=== PATIENT | female | born 1985 | race Caucasian/White ===

== ENCOUNTER 2022-09-24 12:35 | Emergency (ER) | payer OTHER ==
[~2022-09-24] VITALS: Ht 152.4 cm; Wt 49.0 kg
== END 2022-09-24 16:05 | disposition home or self-care (01) ==
LOC: ER 12:35
DX: J06.9 Acute upper respiratory infection, unspecified (principal); Z20.822 Contact with and (suspected) exposure to COVID-19

== ENCOUNTER 2024-10-22 21:00 | Emergency (ER) | payer OTHER ==
[~2024-10-22] VITALS: Ht 152.4 cm; Wt 49.9 kg
[2024-10-22] MEDS ORDERED: CARAFATE1 GM (21:52)
[2024-10-22] MEDS ORDERED: PANTOPRAZO40 MG/50 M (21:52)
[2024-10-22] MEDS ORDERED: ACID REDUCER20 M1 (21:52)
[2024-10-22] MEDS ORDERED: PEPCID AC20 MG (21:52)
[2024-10-22 21:55] VITALS: BP 104/74; O2SAT 100
[2024-10-22] MEDS ORDERED: FAMOTIDINE/PF 20 MG in 0.9 % SODIUM CHLORIDE 8 ML IV PUSH STA (22:13)
[2024-10-22] MEDS ORDERED: 0.9 % SODIUM CHLORIDE 1,000 ML IV SCH (22:15)
[2024-10-22] MEDS ORDERED: ONDANSETRON HCL 2 MG/ML VIAL IV ONE (22:15)
[2024-10-22] MEDS ORDERED: DIPHENOXYLATE HCL/ATROPINE 1 UDTAB TABLET PO ONE (22:15)
[2024-10-22] MEDS ORDERED: FAMOTIDINE/PF 20 MG/2 ML VIAL ONE (22:17)
[2024-10-22] MEDS ORDERED: ONDANSETRON HCL 2 MG/ML VIAL ONE (22:17)
[2024-10-22 22:48] LABS: BASO % 0.3 % (0.1-1.2); EOS # 0.01 (0.04-0.54); EOS % 0.1 % (0.7-7.0); LYMPH # 1.10 (1.18-3.74); LYMPH % 11.5 % (19.3-53.1); MEAN PLATELET VOLUME 11.20 fl (9.4-12.4); MONO # 0.67 (0.24-0.82); MONO % 7.0 % (4.7-12.5); NEUT # 7.75 (1.56-6.13); NEUT % 80.8 % (34.0-71.1); RED CELL DISTRIBUTION WIDTH 12.8 % (11.6-14.4)
[2024-10-22 23:08] LABS: ALT/SGPT 25.0 U/L (12-78); AST/SGOT 14.0 U/L (15-37); BILIRUBIN TOTAL 0.25 mg/dL (0.3-1.2); BUN CREA RATIO 8.0 (7.0-25.0); CREATININE SERUM 0.72 mg/dL (0.55-1.02); GFR 90.18; GLOBULINA 4.1 G/DL (2.4-3.5); GLUCOSE FASTING 107.0 mg/dL (65-100); OSMOLALITY SERUM 270.0 MOSM/KG (275-295)
[2024-10-22] MEDS ORDERED: PROTONIX40 MG PO (23:44)
[2024-10-22] MEDS ORDERED: LEVSIN/SL0.125 MG SL (23:44)
[2024-10-22] MEDS ORDERED: INTESTINEX680 M1 PO (23:44)
[2024-10-22] MEDS ORDERED: ONDANSETRON ODT8 MG PO (23:44)
[2024-10-23] MEDS ORDERED: OMEPRAZOLE20 MG PO (12:44)
[2024-10-24] MEDS ORDERED: CIPROFLOXACIN500 MG PO (02:20)
[2024-10-24] MEDS ORDERED: METRONIDAZOLE500 MG PO (02:20)
[2024-10-24] MEDS ORDERED: HYOSCYAMINE0.125 MG PO (02:20)
== END 2024-10-23 00:03 | disposition home or self-care (01) ==
LOC: ER 21:00
PROVIDERS: General Practice
DX: K52.9 Noninfective gastroenteritis and colitis, unspecified (principal); Z91.018 Allergy to other foods

== ENCOUNTER 2024-10-23 10:15 | Emergency (ER) | payer OTHER ==
[~2024-10-23] VITALS: Ht 152.4 cm; Wt 49.9 kg
[~2024-10-23 10:15] MED LIST: ACID REDUCER20 M1; CARAFATE1 GM; INTESTINEX680 M1 PO; LEVSIN/SL0.125 MG SL; ONDANSETRON ODT8 MG PO; PANTOPRAZO40 MG/50 M; PEPCID AC20 MG; PROTONIX40 MG PO
[2024-10-23] MEDS ORDERED: OMEPRAZOLE20 MG PO (12:44)
[2024-10-23] MEDS ORDERED: METRONIDAZOLE/SODIUM CHLORIDE 500 MG/100 ML PIGGYBACK IV ONE ×2 (13:27→13:30)
[2024-10-23] MEDS ORDERED: FAMOTIDINE/PF 20 MG/2 ML VIAL ONE (13:27)
[2024-10-23] MEDS ORDERED: HYOSCYAMINE SULFATE 0.125 MG TAB.SUBL ONE (13:27)
[2024-10-23] MEDS ORDERED: HYOSCYAMINE SULFATE 0.125 MG TAB.SUBL SL ONE (13:30)
[2024-10-23] MEDS ORDERED: FAMOTIDINE/PF 20 MG/2 ML VIAL IV PUSH ONE (13:30)
[2024-10-23] MEDS ORDERED: 0.9 % SODIUM CHLORIDE 1,000 ML IV SCH (13:30)
[2024-10-23 14:15] LABS: BASO % 0.3 % (0.1-1.2); EOS # 0.01 (0.04-0.54); EOS % 0.1 % (0.7-7.0); LYMPH # 0.96 (1.18-3.74); LYMPH % 12.3 % (19.3-53.1); MEAN PLATELET VOLUME 11.10 fl (9.4-12.4); MONO # 0.57 (0.24-0.82); MONO % 7.3 % (4.7-12.5); NEUT # 6.20 (1.56-6.13); NEUT % 79.7 % (34.0-71.1); RED CELL DISTRIBUTION WIDTH 12.8 % (11.6-14.4)
[2024-10-23] MEDS ORDERED: ACETAMINOPHEN 500 MG GEL..CAP PO ONE ×2 (16:21→16:30)
[2024-10-24] MEDS ORDERED: METRONIDAZOLE500 MG PO (02:20)
[2024-10-24] MEDS ORDERED: CIPROFLOXACIN500 MG PO (02:20)
[2024-10-24] MEDS ORDERED: HYOSCYAMINE0.125 MG PO (02:20)
== END 2024-10-23 18:19 | disposition home or self-care (01) ==
LOC: ER 10:15
PROVIDERS: Emergency Medicine
DX: K21.9 Gastro-esophageal reflux disease without esophagitis (principal); A05.9 Bacterial foodborne intoxication, unspecified; R19.7 Diarrhea, unspecified; R10.9 Unspecified abdominal pain; Z91.013 Allergy to seafood

== ENCOUNTER 2024-10-24 01:54 | Inpatient (IN) | payer OTHER ==
[~2024-10-24] VITALS: Ht 152.4 cm; Wt 49.9 kg
[~2024-10-24 01:54] MED LIST changes: +OMEPRAZOLE20 MG PO
[2024-10-24] MEDS ORDERED: HYOSCYAMINE0.125 MG PO (02:20)
[2024-10-24] MEDS ORDERED: CIPROFLOXACIN500 MG PO (02:20)
[2024-10-24] MEDS ORDERED: METRONIDAZOLE500 MG PO (02:20)
[2024-10-24] MEDS ORDERED: PANTOPRAZOLE SODIUM 40 MG in 0.9 % SODIUM CHLORIDE 8 ML IV PUSH STA (02:25)
[2024-10-24] MEDS ORDERED: METRONIDAZOLE/SODIUM CHLORIDE 500 MG/100 ML PIGGYBACK IV ONE ×4 (02:30→15:00)
[2024-10-24] MEDS ORDERED: 0.9 % SODIUM CHLORIDE 1,000 ML IV SCH ×2 (02:30→16:45)
[2024-10-24] MEDS ORDERED: CIPROFLOXACIN IN 5 % DEXTROSE 400 MG/200 ML PIGGYBAG IV ONE ×4 (02:30→15:00)
[2024-10-24] MEDS ORDERED: ONDANSETRON HCL 2 MG/ML VIAL IV ONE (02:30)
[2024-10-24] MEDS ORDERED: ONDANSETRON HCL 2 MG/ML VIAL ONE (02:39)
[2024-10-24 03:05] LABS: BASO % 0.3 % (0.1-1.2); EOS # 0.02 (0.04-0.54); EOS % 0.3 % (0.7-7.0); LYMPH # 0.78 (1.18-3.74); LYMPH % 10.4 % (19.3-53.1); MEAN PLATELET VOLUME 11.00 fl (9.4-12.4); MONO # 0.74 (0.24-0.82); MONO % 9.9 % (4.7-12.5); NEUT # 5.92 (1.56-6.13); NEUT % 78.8 % (34.0-71.1); RED CELL DISTRIBUTION WIDTH 12.7 % (11.6-14.4)
[2024-10-24 03:32] LABS: ALT/SGPT 27.0 U/L (12-78); AST/SGOT 15.0 U/L (15-37); BILIRUBIN TOTAL 0.29 mg/dL (0.3-1.2); BUN CREA RATIO 10.0 (7.0-25.0); CREATININE SERUM 0.62 mg/dL (0.55-1.02); GFR 107.16; GLOBULINA 3.6 G/DL (2.4-3.5); GLUCOSE FASTING 99.0 mg/dL (65-100); OSMOLALITY SERUM 277.0 MOSM/KG (275-295)
[2024-10-24] MEDS ORDERED: KETOROLAC TROMETHAMINE 30 MG VIAL ONE (06:29)
[2024-10-24] MEDS ORDERED: KETOROLAC TROMETHAMINE 30 MG VIAL IV ONE (06:30)
[2024-10-24] MEDS ORDERED: FAMOTIDINE/PF 20 MG in 0.9 % SODIUM CHLORIDE 8 ML IV PUSH SCH (16:39)
[2024-10-24] MEDS ORDERED: MORPHINE SULFATE 2 MG/ML CARTRIDGE IV PRN (16:45)
[2024-10-24] MEDS ORDERED: ACETAMINOPHEN 500 MG GEL..CAP PO PRN (16:45)
[2024-10-24] MEDS ORDERED: ONDANSETRON HCL 4 MG in 0.9 % SODIUM CHLORIDE 50 ML IV PRN (16:45)
[2024-10-24 17:42] VITALS: BP 129/77
[2024-10-24 17:57] LABS: INR 1.07
[2024-10-24 18:06] LABS: URINE APPEARANCE Clear; URINE BILIRRUBIN Negative (NEGATIVE); URINE BLOOD Moderate; URINE COLOR Yellow; URINE GLUCOSE Negative (NEGATIVE); URINE LEUKOCYTE Trace; URINE NITRATE Negative; URINE PROTEIN Negative (NEGATIVE); URINE UROBILINOGEN 0.2 E.U./dl
[2024-10-24 18:09] LABS: URINE BACTERIA 727.0 uL (0.0-1933); URINE EPITHELIAL CELLS 12.1 uL (0.0-38.8); URINE RBC 91.0 uL (0.0-20.8); URINE WBC 10.1 uL (0.0-23.2)
[2024-10-24 18:14] LABS: URINE CAST 0.14 uL (0.0-1.40); URINE KETONE 80 (NEGATIVE)
[2024-10-24 18:22] VITALS: BP 111/74; O2SAT 100
[2024-10-24] MEDS ORDERED: CIPROFLOXACIN IN 5 % DEXTROSE 200 ML IV SCH (21:00)
[2024-10-25 01:50] VITALS: BP 90/57; O2SAT 97
[2024-10-25] MEDS ORDERED: CIPROFLOXACIN IN 5 % DEXTROSE 200 ML IV SCH (05:00)
[2024-10-25 10:29] VITALS: BP 101/65; O2SAT 99
[2024-10-25 19:12] VITALS: BP 125/82
[2024-10-26 03:30] VITALS: BP 109/64; O2SAT 97
[2024-10-26 06:23] LABS: BASO % 0.8 % (0.1-1.2); EOS # 0.32 (0.04-0.54); EOS % 6.7 % (0.7-7.0); LYMPH # 1.78 (1.18-3.74); LYMPH % 37.0 % (19.3-53.1); MEAN PLATELET VOLUME 11.40 fl (9.4-12.4); MONO # 0.80 (0.24-0.82); NEUT # 1.86 (1.56-6.13); NEUT % 38.7 % (34.0-71.1); RED CELL DISTRIBUTION WIDTH 12.4 % (11.6-14.4)
[2024-10-26 07:04] LABS: ALT/SGPT 50.0 U/L (12-78); AST/SGOT 41.0 U/L (15-37); BILIRUBIN TOTAL 0.28 mg/dL (0.3-1.2); BUN CREA RATIO 6.0 (7.0-25.0); CREATININE SERUM 0.48 mg/dL (0.55-1.02); GFR 143.98; GLOBULINA 3.1 G/DL (2.4-3.5); GLUCOSE FASTING 75.0 mg/dL (65-100); OSMOLALITY SERUM 273.0 MOSM/KG (275-295)
[2024-10-26 07:35] LABS: MONO % 16.6 % (4.7-12.5)
[2024-10-26 07:36] LABS: BAND MAN 2.0 %; EOSINOPHIL MAN 1.0 %; LYMPHOCYTE MAN 34.0 %; MONOCYTE MAN 13.0 %; NEUTROPHILS MAN 43.0 %
[2024-10-26] MEDS ORDERED: FAMOTIDINE/PF 20 MG/2 ML VIAL ONE (08:01)
[2024-10-26] MEDS ORDERED: LOPERAMIDE HCL 2 MG CAPSULE PO PRN (08:30)
[2024-10-26 09:17] VITALS: BP 108/60; O2SAT 97
[2024-10-26] MEDS ORDERED: LACTOBACILLUS ACIDOPHILUS 1 CAP CAP PO SCH (17:00)
[2024-10-26 17:50] VITALS: BP 115/65; O2SAT 96
[2024-10-27 03:44] VITALS: BP 103/67; O2SAT 95
[2024-10-27] MEDS ORDERED: FAMOTIDINE/PF 20 MG/2 ML VIAL ONE (08:43)
[2024-10-27 10:24] VITALS: BP 114/72; O2SAT 100
[2024-10-27 16:16] VITALS: BP 113/80; O2SAT 100
[2024-10-27 23:07] LABS: GIARDIA LAMBLIA EIA Negative (Negative)
[2024-10-28 03:39] VITALS: BP 105/67; O2SAT 97
[2024-10-30 11:12] LABS: campy Final report (.)
== END 2024-10-28 09:33 | disposition home or self-care (01) | DRG 392 ==
LOC: ER 01:54 → MEDJ 16:51
PROVIDERS: General Practice; Internal Medicine Infectious Disease; ADMIT Internal Medicine; ATTEND Internal Medicine
PROC: BW21ZZZ Computerized Tomography (CT Scan) of Abdomen and Pelvis (ICD-10-PCS; principal; 2024-10-24)
DX: K52.89 Other specified noninfective gastroenteritis and colitis (principal); K21.9 Gastro-esophageal reflux disease without esophagitis

== ENCOUNTER → 2024-12-27 | Emergency (ER) | payer OTHER ==
[~2024-12-27] VITALS: Ht 152.4 cm; Wt 45.4 kg
[~2024-12-27] MED LIST changes: +0.9 % SODIUM CHLORIDE 1,000 ML IV ONE; +CIPROFLOXACIN500 MG PO; +HYOSCYAMINE0.125 MG PO; +KETOROLAC TROMETHAMINE 30 MG VIAL IV STA; +KETOROLAC TROMETHAMINE 30 MG VIAL ONE; +METRONIDAZOLE500 MG PO
[2024-12-27 08:23] LABS: BASO % 0.6 % (0.1-1.2); EOS # 0.22 (0.04-0.54); EOS % 3.0 % (0.7-7.0); LYMPH # 1.73 (1.18-3.74); LYMPH % 23.8 % (19.3-53.1); MEAN PLATELET VOLUME 11.30 fl (9.4-12.4); MONO # 0.57 (0.24-0.82); MONO % 7.9 % (4.7-12.5); NEUT # 4.68 (1.56-6.13); NEUT % 64.4 % (34.0-71.1); RED CELL DISTRIBUTION WIDTH 13.2 % (11.6-14.4)
[2024-12-27 08:55] LABS: INR 1.05
[2024-12-27 09:34] LABS: URINE APPEARANCE Clear; URINE BILIRRUBIN Negative (NEGATIVE); URINE BLOOD Trace; URINE COLOR Yellow; URINE GLUCOSE Negative (NEGATIVE); URINE KETONE Negative (NEGATIVE); URINE LEUKOCYTE Negative; URINE NITRATE Negative; URINE PROTEIN Negative (NEGATIVE); URINE UROBILINOGEN 0.2 E.U./dl
[2024-12-27 09:38] LABS: URINE BACTERIA 1341.4 uL (0.0-1933); URINE EPITHELIAL CELLS 10.2 uL (0.0-38.8); URINE RBC 8.9 uL (0.0-20.8); URINE WBC 11.2 uL (0.0-23.2)
[2024-12-27 09:47] LABS: URINE CAST 0.58 uL (0.0-1.40)
[2024-12-27 09:59] LABS: ALT/SGPT 14.0 U/L (12-78); AST/SGOT 8.0 U/L (15-37); BILIRUBIN TOTAL 0.37 mg/dL (0.3-1.2); BUN CREA RATIO 18.0 (7.0-25.0); CREATININE SERUM 0.57 mg/dL (0.55-1.02); GFR 118.08; GLOBULINA 3.0 G/DL (2.4-3.5); GLUCOSE FASTING 89.0 mg/dL (65-100); OSMOLALITY SERUM 280.0 MOSM/KG (275-295)
== END | disposition home or self-care (01) ==
LOC: ER 06:36
PROVIDERS: General Practice
DX: R42 Dizziness and giddiness (principal); Z91.018 Allergy to other foods